=== PATIENT | female | born 1990 | race Two or more races ===

== ENCOUNTER 2018-08-29 21:55 | Emergency (ER) | payer OTHER ==
[~2018-08-29] VITALS: Ht 147.3 cm; Wt 68.9 kg
[~2018-08-29 21:55] MED LIST: CIPRO750 MG PO; TRAMADOL HCL50 MG PO
[2018-08-30] MEDS ORDERED: LEVSIN/SL0.125 MG SL (03:34)
== END 2018-08-30 03:30 | disposition home or self-care (01) ==
LOC: ER 21:55
DX: K80.20 Calculus of gallbladder without cholecystitis without obstruction (principal)

== ENCOUNTER 2019-10-29 12:40 | Outpatient (CLI) | payer OTHER ==
[~2019-10-29 12:40] MED LIST changes: +LEVSIN/SL0.125 MG SL
== END 2019-10-29 12:45 | disposition home or self-care (01) ==
LOC: LAB 12:40
DX: K80.20 Calculus of gallbladder without cholecystitis without obstruction (principal); Z01.812 Encounter for preprocedural laboratory examination

== ENCOUNTER 2019-10-30 05:15 | Day surgery (SDC) | payer OTHER | END 2019-10-30 17:22 | disposition home or self-care (01) | LOC: CIR.AMB 05:15 → ADM 11:30 → CIR.AMB 17:22 | DX: K80.10 Calculus of gallbladder with chronic cholecystitis without obstruction (principal) ==

== ENCOUNTER 2022-08-11 08:24 | Emergency (ER) | payer OTHER ==
[~2022-08-11] VITALS: Ht 149.9 cm; Wt 67.6 kg
== END 2022-08-11 10:31 | disposition home or self-care (01) ==
LOC: ER 08:24
DX: N75.8 Other diseases of Bartholin's gland (principal)

== ENCOUNTER 2022-09-01 11:00 | Inpatient (IN) | payer OTHER ==
[~2022-09-01] VITALS: Ht 149.9 cm; Wt 68.0 kg
[2022-09-01] MEDS ORDERED: COZAAR25 MG PO (13:26)
[2022-09-05] MEDS ORDERED: Tylenol #3 PO (10:03)
[2022-09-05] MEDS ORDERED: NAPR500T14 PO (10:03)
== END 2022-09-05 12:00 | disposition home or self-care (01) | DRG 743 ==
LOC: O/R 09-02 05:55 → OB/GYN 09-02 11:00
PROVIDERS: ADMIT Obstetrics & Gynecology; ATTEND Obstetrics & Gynecology
PROC: 0UT60ZZ Resection of Left Fallopian Tube, Open Approach (ICD-10-PCS; 2022-09-02)
PROC: 0UT10ZZ Resection of Left Ovary, Open Approach (ICD-10-PCS; 2022-09-02)
PROC: 0UN20ZZ Release Bilateral Ovaries, Open Approach (ICD-10-PCS; 2022-09-02)
PROC: 0DNP0ZZ Release Rectum, Open Approach (ICD-10-PCS; 2022-09-02)
PROC: 0TJB8ZZ Inspection of Bladder, Via Natural or Artificial Opening Endoscopic (ICD-10-PCS; 2022-09-02)
PROC: 0UT90ZZ Resection of Uterus, Open Approach (ICD-10-PCS; principal; 2022-09-02 13:15)
DX: D25.1 Intramural leiomyoma of uterus (principal); N80.03 Adenomyosis of the uterus; N73.6 Female pelvic peritoneal adhesions (postinfective); N83.12 Corpus luteum cyst of left ovary; N80.111 Superficial endometriosis of right ovary; N80.112 Superficial endometriosis of left ovary; Z20.822 Contact with and (suspected) exposure to COVID-19; N81.11 Cystocele, midline